=== PATIENT | male | born 2000 | race Two or more races ===

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

== ENCOUNTER 2018-04-17 09:51 | Emergency (ER) | payer MEDICAID ==
[2018-04-17 10:19] LABS: ABSOLUTE EOSINOPHILS # (AUTO) 0.2 10^3/uL (0.0-0.6); ABSOLUTE LYMPHOCYTES (AUTO) 2.2 10^3/uL (0.5-4.7); ABSOLUTE MONOCYTES (AUTO) 0.6 10^3/uL (0.1-1.4); ABSOLUTE NEUT (AUTO) 5.5 10^3/uL (1.7-8.2); BASOPHILS % (AUTO) 0.6 % (0-2); EOSINOPHILS % (AUTO) 2.2 % (0-6); HEMATOCRIT 53.9 % (37.9-51.0); HEMOGLOBIN 18.3 g/dL (13.5-17.0); LYMPHOCYTES % (AUTO) 25.7 % (13-45); MEAN CORPUSCULAR HEMOGLOBIN 29.7 pg (27.0-33.4); MEAN CORPUSCULAR HGB CONC 33.9 g/dL (32.0-36.0); MEAN CORPUSCULAR VOLUME 87 fl (80-97); MONOCYTES % (AUTO) 7.6 % (3-13); PLATELET COUNT 284 10^3/uL (150-450); RED BLOOD COUNT 6.17 10^6/uL (4.35-5.55); RED CELL DISTRIBUTION WIDTH 12.5 % (11.5-14.0); SEGMENTED NEUTROPHILS % (AUTO) 63.9 % (42-78); TOTAL CELLS COUNTED % (AUTO) 100 %; WHITE BLOOD COUNT 8.6 10^3/uL (4.0-10.5)
[2018-04-17] MEDS ORDERED: NORMAL SALINE 1000 ML 1,000 ML IV ONE ×2 (10:41→14:32)
[2018-04-17] MEDS ORDERED: ONDANSETRON HCL INJ/PF 4 MG/2 ML SDV IV ONE (10:41)
[2018-04-17 10:42] LABS: ALANINE AMINOTRANSFERASE 20 U/L (10-40); ALBUMIN 5.7 g/dL (3.7-5.6); ALKALINE PHOSPHATASE 87 U/L (65-260); ASPARTATE AMINO TRANSFERASE 21 U/L (10-45); BILIRUBIN,DIRECT 0.4 mg/dL (0.0-0.4); BILIRUBIN,TOTAL 1.1 mg/dL (0.2-1.3); BLOOD UREA NITROGEN 20 mg/dL (7-20); CALCIUM 11.3 mg/dL (8.4-10.2); GLUCOSE 93 mg/dL (75-110); POTASSIUM 3.6 mmol/L (3.6-5.0); TOTAL PROTEIN 9.3 g/dL (6.3-8.2)
[2018-04-17 10:44] LABS: ACETAMINOPHEN < 10 ug/mL (10-30); ALCOHOL < 10 mg/dL (NONE DETECTED); SALICYLATE < 1.0 mg/dL (2.0-20.0)
[2018-04-17 10:44] LABS: APPEARANCE,URINE CLEAR; BILIRUBIN,URINE NEGATIVE (NEGATIVE); COLOR,URINE YELLOW; GLUCOSE, URINE NEGATIVE (NEGATIVE); KETONES,URINE NEGATIVE (NEGATIVE); LEUKOCYTE ESTERASE,URINE NEGATIVE (NEGATIVE); NITRITE,URINE NEGATIVE (NEGATIVE); PROTEIN,URINE NEGATIVE (NEGATIVE); URINE SPECIFIC GRAVITY 1.015
--- NOTE | 2018-04-17 10:44 | ER Document Report ---
ED General - General Chief Complaint: Drug Abuse Stated Complaint: CHEST PAIN Time Seen by Provider: 04/17/18 10:40 Mode of Arrival: Medic Information source: Patient, Emergency Med Personnel Notes: 17-year-old male with admitted polysubstance abuse presents via EMS after the patient vomited and believed to see blood streaks in his emesis. Patient states that he has been using methamphetamines for the last 4 days straight. He states that he has snorted over a gram. He states that yesterday he had multiple episodes where he was unable to walk. He admits to previous Percocet abuse. He admits to marijuana and alcohol use as well. Patient currently complaining of nausea and left knee pain.. He states he has not eaten in over 4 days. He denies headache, chest pain, shortness of breath, abdominal pain. TRAVEL OUTSIDE OF THE [place] IN LAST 30 DAYS: No - HPI Onset: Other Quality of pain: Achy - Left knee pain Severity: Mild Pain Level: 1 Exacerbated by: Movement Relieved by: Remaining still Similar symptoms previously: Yes Recently seen / treated by doctor: No - Related Data Allergies/Adverse Reactions: fluoxetine [From Prozac] Allergy (Verified 04/17/18 10:06) tramadol [From Ultram] Allergy (Verified 04/17/18 10:06) Past Medical History - General Information source: Patient, [facility] Records - Social History Smoking Status: Current Every Day Smoker Frequency of alcohol use: Occasional Drug Abuse: Marijuana, Methamphetamine Lives with: Friend Family History: Reviewed & Not Pertinent Patient has suicidal ideation: No Patient has homicidal ideation: No Pulmonary Medical History: Reports: Hx Asthma Renal/ Medical History: Denies: Hx Peritoneal Dialysis - Immunizations Immunizations up to date: Yes Hx Diphtheria, Pertussis, Tetanus Vaccination: Yes Review of Systems - Review of Systems Constitutional: Weakness EENT: denies: Double vision Cardiovascular: Lightheaded. denies: Chest pain, Palpitations Respiratory: denies: Hurts to breathe, Short of breath Gastrointestinal: Nausea, Vomiting Genitourinary: denies: Dysuria Male Genitourinary: No symptoms reported Musculoskeletal: Joint swelling, Other - Left knee pain Skin: No symptoms reported Hematologic/Lymphatic: No symptoms reported Neurological/Psychological: Weakness, Lost consciousness. denies: Hallucinations, Suicidal ideation Physical Exam - Vital signs Vitals: Resp BP Pulse Ox 15 119/74 99 04/17/18 10:02 04/17/18 10:02 04/17/18 10:02 Interpretation: Normal, Tachycardic. No: Hypoxic - Notes Notes: PHYSICAL EXAMINATION: GENERAL: Well-appearing, well-nourished and in no acute distress. HEAD: Atraumatic, normocephalic. EYES: Pupils equal round and reactive to light, extraocular movements intact, sclera anicteric, conjunctiva are normal. ENT: Nares patent, oropharynx clear without exudates. Moist mucous membranes. NECK: Normal range of motion, supple without lymphadenopathy LUNGS: Breath sounds clear to auscultation bilaterally and equal. No wheezes rales or rhonchi. HEART: Regular rate and rhythm without murmurs ABDOMEN: Soft, nontender, nondistended abdomen. No guarding, no rebound. No masses appreciated. Musculoskeletal: Left knee -no obvious deformity, pain with range of motion, Medial effusion, extensor mechanism intact NEUROLOGICAL: Cranial nerves grossly intact. Normal speech, normal gait. Normal sensory, motor exams PSYCH: Normal mood, normal affect. Denies SI/HI, auditory and visual hallucinations. Is requesting psych eval SKIN: Warm, Dry, normal turgor, no rashes or lesions noted. Course - Re-evaluation Re-evalutation: Laboratory 04/17/18 04/17/18 04/17/18 09:00 09:00 10:19 WBC 8.6 RBC 6.17 H Hgb 18.3 H Hct 53.9 H MCV 87 MCH 29.7 MCHC 33.9 RDW 12.5 Plt Count 284 Seg Neutrophils % 63.9 Lymphocytes % 25.7 Monocytes % 7.6 Eosinophils % 2.2 Basophils % 0.6 Absolute Neutrophils 5.5 Absolute Lymphocytes 2.2 Absolute Monocytes 0.6 Absolute Eosinophils 0.2 Absolute Basophils 0.0 Sodium 143.8 Potassium 3.6 Chloride 99 Carbon Dioxide 25 Anion Gap 20 H BUN 20 Creatinine 0.97 Est GFR ( Amer) > 60 Est GFR (Non-Af Amer) > 60 Glucose 93 Calcium 11.3 H Total Bilirubin 1.1 Direct Bilirubin 0.4 Neonat Total Bilirubin Not Reportable Neonat Direct Bilirubin Not Reportable Neonat Indirect Bili Not Reportable AST 21 ALT 20 Alkaline Phosphatase 87 Total Protein 9.3 H Albumin 5.7 H Urine Color YELLOW Urine Appearance CLEAR Urine pH 7.0 Ur Specific [place] 1.015 Urine Protein NEGATIVE Urine Glucose (UA) NEGATIVE Urine Ketones NEGATIVE Urine Blood NEGATIVE Urine Nitrite NEGATIVE Urine Bilirubin NEGATIVE Urine Urobilinogen 4.0 H Ur Leukocyte Esterase NEGATIVE Urine WBC (Auto) 0 Urine RBC (Auto) 0 Urine Mucus (Auto) RARE Urine Ascorbic Acid NEGATIVE Salicylates < 1.0 L Urine Opiates Screen Urine Methadone Screen Acetaminophen < 10 L Ur Barbiturates Screen Ur Phencyclidine Scrn Ur Amphetamines Screen U Benzodiazepines Scrn Urine Cocaine Screen U Marijuana (THC) Screen Serum Alcohol < 10 04/17/18 10:19 WBC RBC Hgb Hct MCV MCH MCHC RDW Plt Count Seg Neutrophils % Lymphocytes % Monocytes % Eosinophils % Basophils % Absolute Neutrophils Absolute Lymphocytes Absolute Monocytes Absolute Eosinophils Absolute Basophils Sodium Potassium Chloride Carbon Dioxide Anion Gap BUN Creatinine Est GFR ( Amer) Est GFR (Non-Af Amer) Glucose Calcium Total Bilirubin Direct Bilirubin Neonat Total Bilirubin Neonat Direct Bilirubin Neonat Indirect Bili AST ALT Alkaline Phosphatase Total Protein Albumin Urine Color Urine Appearance Urine pH Ur Specific [place] Urine Protein Urine Glucose (UA) Urine Ketones Urine Blood Urine Nitrite Urine Bilirubin Urine Urobilinogen Ur Leukocyte Esterase Urine WBC (Auto) Urine RBC (Auto) Urine Mucus (Auto) Urine Ascorbic Acid Salicylates Urine Opiates Screen NEGATIVE Urine Methadone Screen NEGATIVE Acetaminophen Ur Barbiturates Screen NEGATIVE Ur Phencyclidine Scrn NEGATIVE Ur Amphetamines Screen U Benzodiazepines Scrn NEGATIVE Urine Cocaine Screen NEGATIVE U Marijuana (THC) Screen UNCONFIRMED POSITIVE Serum Alcohol 04/17/18 15:20 17-year-old male with admitted polysubstance abuse presents via EMS after the patient vomited and believed to see blood streaks in his emesis. Patient states that he has been using methamphetamines for the last 4 days straight. He states that he has snorted over a gram. He states that yesterday he had multiple episodes where he was unable to walk. He admits to previous Percocet abuse. He admits to marijuana and alcohol use as well. Patient currently complaining of nausea and left knee pain.. He states he has not eaten in over 4 days. Vitals reviewed upon arrival and wnl. Patient AOx4 and in no distress. States he's concerned he may have used to much meth. Patient received IV fluids , antiemetics and tylenol during his ED course. He had no vomiting after over three hours of observation. Patient remained stable throughout his ED course. He was evaluated by psychiatry and is declining detox. Patient is psychiatrically cleared, medically cleared. Patient will be discharged to a responsible adult(father called) Drug cessation advised multiple times.Patient states he can stop using "if he wants" Patient discharged home in stable condition. 04/17/18 21:58 - Vital Signs Vital signs: Temp Pulse Resp BP Pulse Ox 98.2 F 90 18 127/87 H 97 04/17/18 16:05 04/17/18 16:05 04/17/18 16:05 04/17/18 16:05 04/17/18 16:05 - Laboratory Result Diagrams: 04/17/18 09:00 04/17/18 09:00 Laboratory results interpreted by me: 04/17/18 04/17/18 04/17/18 09:00 09:00 10:19 RBC 6.17 H Hgb 18.3 H Hct 53.9 H Anion Gap 20 H Calcium 11.3 H Total Protein 9.3 H Albumin 5.7 H Urine Urobilinogen 4.0 H Salicylates < 1.0 L Acetaminophen < 10 L - Diagnostic Test Radiology reviewed: Image reviewed, Reports reviewed - EKG Interpretation by Me EKG shows normal: Sinus rhythm Rate: Normal Rhythm: NSR Discharge - Discharge Clinical Impression: Substance abuse, Amphetamine abuse Contusion of left knee Qualifiers: Encounter type: initial encounter Qualified Code(s): S80.02XA - Contusion of left knee, initial encounter Condition: Good Disposition: HOME, SELF-CARE Instructions: Ampetamine Abuse ([facility]), Contusion ([facility]) Additional Instructions: Follow up with your physician tomorrow for further care or return to the ED IMMEDIATELY if symptoms worsen or new concerns occur. If you cannot afford to follow up with your primary care physician a list of low cost clinics have been provided at the end of your discharge papers as well. Forms: Smoking Cessation Education
[2018-04-17 10:47] LABS: CARBON DIOXIDE 25 mmol/L (22-30); CHLORIDE 99 mmol/L (98-107); SODIUM 143.8 mmol/L (137-145)
[2018-04-17 10:48] LABS: ANION GAP 20 (5-19)
[2018-04-17 11:03] LABS: URINE BARBITURATES SCREEN NEGATIVE; URINE BENZODIAZEPINES SCREEN NEGATIVE; URINE COCAINE SCREEN NEGATIVE; URINE MARIJUANA (THC) SCREEN UNCONFIRMED POSITIVE; URINE METHADONE SCREEN NEGATIVE; URINE PHENCYCLIDINE SCREEN NEGATIVE
--- NOTE | 2018-04-17 11:47 | RADIOLOGY REPORT (SQ) ---
EXAM DESCRIPTION: KNEE RIGHT 3 VIEWS COMPLETED DATE/TIME: 04/17/2018 11:25 am REASON FOR STUDY: fall fall yesterday, injury pain. No open wound. COMPARISON: None. NUMBER OF VIEWS: Three views. TECHNIQUE: AP, lateral, and sunrise patella radiographic images acquired of the right knee. LIMITATIONS: None. FINDINGS: MINERALIZATION: Normal. BONES: No acute fracture or dislocation. No worrisome bone lesions. JOINT: No effusion. SOFT TISSUES: No soft tissue swelling. No radio-opaque foreign body. OTHER: No other significant finding. IMPRESSION: NEGATIVE STUDY OF THE RIGHT KNEE. NO RADIOGRAPHIC EVIDENCE OF ACUTE INJURY. TECHNICAL DOCUMENTATION: JOB ID: [id number] [employer]- All Rights Reserved Reading location - IP/workstation name: [email or web address]
[2018-04-17] MEDS ORDERED: METOCLOPRAMIDE HCL INJ/PF 10 MG/2 ML SDV IV ONE (12:42)
[2018-04-17] MEDS ORDERED: ACETAMINOPHEN 325 MG TABLET PO ONE (12:42)
--- NOTE | 2018-04-17 13:01 | EKG REPORT ---
SEVERITY:- ABNORMAL ECG - SINUS RHYTHM BORDERLINE RIGHT AXIS DEVIATION ST ELEVATION NONDIAGNOSTIC : Confirmed by: Benji Juen MD 17-Apr-2018 13:00:45
[2018-04-17 16:05] VITALS: BP 127/87
--- NOTE | 2018-04-18 00:12 | PSYCHOLOGICAL NOTE ---
Psych Note - Psych Note Psych Note: Reason for consult: Methamphetamine abuse Contact Permissions: None Patient is a 17 year old male. Patient reports he called EMS because he was googling meth overdose and stated he was worried about his physical body like his heart , knee, and lungs. Patient reports he has been using meth for 4 months now. Patient reports he can stop when he wants to, and is not addicted. Patient reports he started using because of a friend that introduced him to it. Patient reports he usually snorts ( not smokes) 0.1 mg three times a day, but used 0.2 mg 5 times yesterday and became concerned today because he heart felt weird. Patient reports he has friends and family that are good support systems. Patient reports he does not want detox. Patient reports he is not suicidal and has not had any thoughts of wanting to harm himself. Patient reports he has a friend coming to visit him calling him a "guest". Patient reports he has never had therapy, inpatient psychiatric hospitalizations, or received a mental health diagnosis before. Patient reports he lives with family and mainly hangs out with friends. Patient nurse stated patient's father is going to pick patient up once he is medically cleared. 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 Patient denied SI/HI.Patient was provided substance abuse resources. Clinician observed patient does not see his use as negative, and is primarily concerned about his physical health. Recommendation for patient to follow up with [facility] mobile crisis management team. Patient denied wanting substance use treatment. Clinician provided education regarding substance use disorder, and negative health impact methamphetamine has, and the benefits of utilizing resources such as [facility] for substance use disorder. Patient's nurse was notified to ensure patient was discharged to a person who was able to transport patient home, patient's nurse stated patient's father was on the way to pick patient up. Attending physician in agreement with plan and disposition. Consulted with Dr. Rivas regarding management and care of patient.
== END 2018-04-17 16:08 | disposition home or self-care (01) ==
LOC: ER 09:51
DX: F15.10 Other stimulant abuse, uncomplicated (principal); F12.10 Cannabis abuse, uncomplicated; R11.2 Nausea with vomiting, unspecified; S80.02XA Contusion of left knee, initial encounter; X58.XXXA Exposure to other specified factors, initial encounter; R55 Syncope and collapse; R53.1 Weakness; F17.200 Nicotine dependence, unspecified, uncomplicated; J45.909 Unspecified asthma, uncomplicated; Z88.8 Allergy status to other drugs, medicaments and biological substances; Z88.5 Allergy status to narcotic agent
CPT/HCPCS: 93005; 99285; 96361; 96374; 36415; 80307 ×4; 85025; 80053; 81001; 73562; 93010; J3490; J2765; J7030

== ENCOUNTER 2018-06-28 14:24 | Emergency (ER) | payer SELFPAY ==
[2018-06-28 14:30] VITALS: BP 115/66
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
[2018-06-28 18:46] LABS: ABSOLUTE EOSINOPHILS # (AUTO) 0.1 10^3/uL (0.0-0.6); ABSOLUTE LYMPHOCYTES (AUTO) 2.6 10^3/uL (0.5-4.7); ABSOLUTE MONOCYTES (AUTO) 0.8 10^3/uL (0.1-1.4); ABSOLUTE NEUT (AUTO) 6.3 10^3/uL (1.7-8.2); BASOPHILS % (AUTO) 0.5 % (0-2); EOSINOPHILS % (AUTO) 1.3 % (0-6); HEMATOCRIT 42.3 % (37.9-51.0); HEMOGLOBIN 14.4 g/dL (13.5-17.0); LYMPHOCYTES % (AUTO) 26.4 % (13-45); MEAN CORPUSCULAR HEMOGLOBIN 30.2 pg (27.0-33.4); MEAN CORPUSCULAR HGB CONC 34.1 g/dL (32.0-36.0); MEAN CORPUSCULAR VOLUME 88 fl (80-97); MONOCYTES % (AUTO) 8.5 % (3-13); PLATELET COUNT 206 10^3/uL (150-450); RED BLOOD COUNT 4.79 10^6/uL (4.35-5.55); RED CELL DISTRIBUTION WIDTH 12.9 % (11.5-14.0); SEGMENTED NEUTROPHILS % (AUTO) 63.3 % (42-78); TOTAL CELLS COUNTED % (AUTO) 100 %; WHITE BLOOD COUNT 9.9 10^3/uL (4.0-10.5)
[2018-06-28] MEDS ORDERED: TETRACAINE HCL 0.5% OPH SOLN 2 ML OS ONE (18:59)
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
[2018-06-28 19:05] LABS: ALANINE AMINOTRANSFERASE 23 U/L (10-40); ALBUMIN 4.3 g/dL (3.7-5.6); ALKALINE PHOSPHATASE 60 U/L (65-260); ANION GAP 16 (5-19); ASPARTATE AMINO TRANSFERASE 20 U/L (10-45); BILIRUBIN,DIRECT 0.2 mg/dL (0.0-0.4); BILIRUBIN,TOTAL 0.7 mg/dL (0.2-1.3); BLOOD UREA NITROGEN 7 mg/dL (7-20); CALCIUM 9.6 mg/dL (8.4-10.2); CARBON DIOXIDE 24 mmol/L (22-30); CHLORIDE 105 mmol/L (98-107); GLUCOSE 137 mg/dL (75-110); POTASSIUM 3.3 mmol/L (3.6-5.0); SODIUM 144.5 mmol/L (137-145)
[2018-06-28 19:06] LABS: ALCOHOL < 10 mg/dL (NONE DETECTED)
[2018-06-28] MEDS: ERYTHROMYCIN 0.5% OPH OINT 1 GM UNIT DOSE OS ONE (19:22)
[2018-06-28] MEDS: IBUPROFEN 800 MG TABLET PO ONE (19:23)
== END 2018-06-28 19:31 | disposition home or self-care (01) ==
LOC: ER 14:24
DX: S05.12XA Contusion of eyeball and orbital tissues, left eye, initial encounter (principal); S50.02XA Contusion of left elbow, initial encounter; S80.02XA Contusion of left knee, initial encounter; S20.412A Abrasion of left back wall of thorax, initial encounter; S20.411A Abrasion of right back wall of thorax, initial encounter; M25.559 Pain in unspecified hip; H57.12 Ocular pain, left eye; M54.2 Cervicalgia; Y04.2XXA Assault by strike against or bumped into by another person, initial encounter; H53.8 Other visual disturbances; G91.9 Hydrocephalus, unspecified; G93.89 Other specified disorders of brain; F17.210 Nicotine dependence, cigarettes, uncomplicated; F12.10 Cannabis abuse, uncomplicated; J45.909 Unspecified asthma, uncomplicated; Z88.8 Allergy status to other drugs, medicaments and biological substances; Z88.5 Allergy status to narcotic agent
CPT/HCPCS: 99284; 36415; 80307; 85025; 80053; 73080; 73564; 73522; 73010; 70450; 70486; 72125; L1830; L0120

== ENCOUNTER 2018-12-15 08:47 | Emergency (ER) | payer SELFPAY ==
[2018-12-15] MEDS ORDERED: NORMAL SALINE 1000 ML 1,000 ML IV ONE (08:55)
--- NOTE | 2018-12-15 09:02 | ER Document Report ---
Addendum entered and electronically signed by JANIYA AUSTIN MD 12/16/18 10:47: Discharge - Discharge Clinical Impression: Suicide attempt Drug overdose Qualifiers: Encounter type: initial encounter Injury intent: intentional self-harm Qualified Code(s): T50.902A - Poisoning by unspecified drugs, medicaments and biological substances, intentional self-harm, initial encounter Condition: Stable Disposition: HOME, SELF-CARE Additional Instructions: You have been evaluated both medical and behavioral health teams and been deemed appropriate for discharge. You have provided local resource list of area providers including contact information for mobile crisis. You are recommended to follow-up with [facility] mobile crisis upon discharge for continued assistance of mental health and substance use treatment. You have also been provided medication. Prozac 10mg daily and Zyprexa 2.5mg twice daily; please take as directed. 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 While symptoms may be vague, they often include disturbance of sleep, fatigue, loss of appetite, and general loss of interest in life. While depression may be a side effect of drugs, or a reaction to a major change in your life, many cases have no known cause. If depression is acute, and related to a major loss in your life, you can expect it to clear completely with time. If you have been depressed a long time, are prone to repeated bouts of depression or low mood, or have been thinking of suicide, get help. Depression can be treated with anti-depressant medication and counselling. Long-term depression will often take a few weeks to clear, even with appropriate medication. Follow-up care is important. SUICIDAL IDEATION: Suicidal ideation is a common medical term for thoughts about suicide, which may be as detailed as a formulated plan, without the suicidal act itself. Although most people who undergo suicidal ideation do not commit suicide, some go on to make suicide attempts. The range of suicidal ideation varies greatly from fleeting to detailed planning, role playing, and unsuccessful attempts. While thoughts about suicide are common, most people do not carry out serious actions to commit suicide. Based upon your evaluation and discussion with you, we do not believe you are currently at risk to act upon your thoughts of suicide. You have agreed to return to the Emergency Department, at any time, if you feel inclined to act upon your suicidal thoughts. FOLLOW-UP CARE: If you experience worsening or a significant change in your symptoms, notify the physician immediately or return to the Emergency Department at any time for re- evaluation. Prescriptions: Fluoxetine HCl [Prozac] 10 mg PO DAILY 14 Days #14 capsule Olanzapine [Zyprexa 2.5 Mg Tablet] 2.5 mg PO BID #28 tablet Referrals: [facility] [Outside] - Follow up in 3-5 days [facility] [Outside] - 12/16/18 GAMAL POWELL MD [Primary Care Provider] - Follow up as needed Addendum entered and electronically signed by MIGUEL MENDES LCSWA 12/16/18 08:31: Discharge - Discharge Clinical Impression: Suicide attempt Drug overdose Qualifiers: Encounter type: initial encounter Injury intent: intentional self-harm Qualified Code(s): T50.902A - Poisoning by unspecified drugs, medicaments and biological substances, intentional self-harm, initial encounter Condition: Stable Disposition: HOME, SELF-CARE Additional Instructions: You have been evaluated both medical and behavioral health teams and been deemed appropriate for discharge. You have provided local resource list of area providers including contact information for mobile crisis. You are recommended to follow-up with [facility] upon discharge for continued assistance of mental health and substance use treatment. You have also been provided medication. Prozac 10mg daily and Zyprexa 2.5mg twice daily; please take as directed. 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 While symptoms may be vague, they often include disturbance of sleep, fatigue, loss of appetite, and general loss of interest in life. While depression may be a side effect of drugs, or a reaction to a major change in your life, many cases have no known cause. If depression is acute, and related to a major loss in your life, you can expect it to clear completely with time. If you have been depressed a long time, are prone to repeated bouts of depression or low mood, or have been thinking of suicide, get help. Depression can be treated with anti-depressant medication and counselling. Long-term depression will often take a few weeks to clear, even with appropriate medication. Follow-up care is important. SUICIDAL IDEATION: Suicidal ideation is a common medical term for thoughts about suicide, which may be as detailed as a formulated plan, without the suicidal act itself. Although most people who undergo suicidal ideation do not commit suicide, some go on to make suicide attempts. The range of suicidal ideation varies greatly from fleeting to detailed planning, role playing, and unsuccessful attempts. While thoughts about suicide are common, most people do not carry out serious actions to commit suicide. Based upon your evaluation and discussion with you, we do not believe you are currently at risk to act upon your thoughts of suicide. You have agreed to return to the Emergency Department, at any time, if you feel inclined to act upon your suicidal thoughts. FOLLOW-UP CARE: If you experience worsening or a significant change in your symptoms, notify the physician immediately or return to the Emergency Department at any time for re- evaluation. Referrals: GAMAL POWELL MD [Primary Care Provider] - Follow up as needed [facility] [Outside] - 12/16/18 [facility] [Outside] - Follow up in 3-5 days Original Note: ED General - General Stated Complaint: POSSIBLE OVERDOSE Time Seen by Provider: 12/15/18 08:55 TRAVEL OUTSIDE OF THE [place] IN LAST 30 DAYS: No - HPI Notes: Patient is a 18 year old male that presents to the emergency department for [facility] complaint of drug overdose. Patient reportedly took 45 300 mg tablets of gabapentin at 730 this morning and a an attempt to kill himself. He states he has had suicidal thoughts and gestures in the past. He currently does still feel like he wants to . He reports pain all over his body. He denies any headache, vision changes, chest pain, shortness of breath, nausea and abdominal pain. Patient also states he has a history of heroin abuse but has not had any heroin in 4 days. He states he was drinking alcohol yesterday and drinks alcohol frequently. He denies daily alcohol consumption. Past Medical History: negative Past Surgical History: negative Social History: heroin abuse, daily tobacco. frequent alcohol Family History: Reviewed and noncontributory for presenting illness Allergies: Reviewed, see documented allergy list. REVIEW OF SYSTEMS: CONSTITUTIONAL : No fever No chills No diaphoresis No recent illness EENT: No vision changes No congestion No sore throat CARDIOVASCULAR: No chest pain No palpitations RESPIRATORY: No shortness of breath No cough No difficulty breathing GASTROINTESTINAL: No abdominal pain No nausea No vomiting No diarrhea GENITOURINARY: No dysuria No hematuria No difficulty urinating MUSCULOSKELETAL: back pain leg pain arm pain SKIN: No rashes No lesions LYMPHATIC: No swollen, enlarged glands. NEUROLOGICAL: No lightheadedness No headache No weakness No paresthesias PSYCHIATRIC: No anxiety No depression PHYSICAL EXAMINATION: Vital signs reviewed, nursing noted reviewed. GENERAL: Somnolent and in no acute distress. HEAD: Atraumatic, normocephalic. EYES: No nystagmus, eyes appear normal, extraocular movements intact, sclera anicteric, conjunctiva are normal. ENT: nares patent, oropharynx clear without exudates. Dry mucous membranes. NECK: Normal range of motion, supple without lymphadenopathy LUNGS: Breath sounds clear to auscultation bilaterally and equal. No wheezes rales or rhonchi. HEART: Tachycardic rate and regular rhythm without murmurs ABDOMEN: Soft, nontender, normoactive bowel sounds. No rebound, guarding, or rigidity. No masses appreciated. EXTREMITIES: Nontender, good range of motion, no pitting or edema. NEUROLOGICAL: No focal neurological deficits. Moves all extremities spontaneously Motor and sensory grossly intact on exam. PSYCH: Flat affect, depressed, suicidal SKIN: Warm, Dry, normal turgor, no rashes or lesions noted on exposed skin - Related Data Allergies/Adverse Reactions: fluoxetine [From Prozac] Allergy (Verified 06/28/18 14:27) tramadol [From Ultram] Allergy (Verified 06/28/18 14:27) Past Medical History - Social History Smoking Status: Current Every Day Smoker Family History: Reviewed & Not Pertinent Pulmonary Medical History: Reports: Hx Asthma Renal/ Medical History: Denies: Hx Peritoneal Dialysis - Immunizations Immunizations up to date: Yes Hx Diphtheria, Pertussis, Tetanus Vaccination: Yes Physical Exam - Vital signs Vitals: Resp Pulse Ox 16 100 12/15/18 09:03 12/15/18 09:03 Course - Re-evaluation Re-evalutation: 12/15/18 09:01 Vitals reviewed. Nursing notes reviewed. Patient placed on cardiac monitoring. Patient ingestion was likely gabapentin however I am unable to confirm this. I did discuss the gabapentin overdose with poison control who recommends at least a 6-hour episode of monitoring for APARTMENT MANAGER and respiratory depression. They advised supportive care. They do not advise charcoal. Patient is currently somnolent but is interactive and answering questions appropriately. He is protecting his airway and oxygenating well on room air. Seizure pads were placed as a precaution. The patient is mildly tachycardic and was started on IV hydration. 12/15/18 09:14 I discussed patient's care with pharmacy who states that some gabapentin tablets are orange if they are in capsule form. When I further interrogated patient with the medication. He was very clear that it was a capsule that was orange all over. This could potentially be gabapentin however there is no way to confi rm this without a sample medication. He is still somnolent but mentating appropriately 12/15/18 15:13 Patient had been in the emergency room for 6 hours. He is now awake and angry that I have not fed him. Patient is mentating appropriately. He has had no dysrhythmia on telemetry. His GCS is 15. Patient is medically cleared for further psychiatric evaluation Laboratory 12/15/18 12/15/18 12/15/18 09:30 09:30 12:25 WBC 6.1 RBC 5.21 Hgb 15.8 Hct 46.2 MCV 89 MCH 30.3 MCHC 34.2 RDW 12.7 Plt Count 232 Seg Neutrophils % 62.6 Lymphocytes % 28.4 Monocytes % 7.3 Eosinophils % 1.2 Basophils % 0.5 Absolute Neutrophils 3.8 Absolute Lymphocytes 1.7 Absolute Monocytes 0.4 Absolute Eosinophils 0.1 Absolute Basophils 0.0 Sodium 140.5 Potassium 4.0 Chloride 107 Carbon Dioxide 27 Anion Gap 7 BUN 11 Creatinine 0.70 Est GFR ( Amer) > 60 Est GFR (Non-Af Amer) > 60 Glucose 85 Calcium 9.5 Total Bilirubin 0.7 Direct Bilirubin 0.2 Neonat Total Bilirubin Not Reportable Neonat Direct Bilirubin Not Reportable Neonat Indirect Bili Not Reportable AST 69 H ALT 46 Alkaline Phosphatase 74 Total Protein 7.3 Albumin 4.7 Urine Color YELLOW Urine Appearance CLEAR Urine pH 7.0 Ur Specific [place] 1.005 Urine Protein NEGATIVE Urine Glucose (UA) NEGATIVE Urine Ketones NEGATIVE Urine Blood NEGATIVE Urine Nitrite NEGATIVE Urine Bilirubin NEGATIVE Urine Urobilinogen 2.0 H Ur Leukocyte Esterase NEGATIVE Urine RBC (Auto) 0 Urine Mucus (Auto) RARE Urine Ascorbic Acid NEGATIVE Salicylates < 1.0 L Urine Opiates Screen Urine Methadone Screen Acetaminophen < 10 L Ur Barbiturates Screen Ur Phencyclidine Scrn Ur Amphetamines Screen U Benzodiazepines Scrn Urine Cocaine Screen U Marijuana (THC) Screen Serum Alcohol < 10 12/15/18 12:25 WBC RBC Hgb Hct MCV MCH MCHC RDW Plt Count Seg Neutrophils % Lymphocytes % Monocytes % Eosinophils % Basophils % Absolute Neutrophils Absolute Lymphocytes Absolute Monocytes Absolute Eosinophils Absolute Basophils Sodium Potassium Chloride Carbon Dioxide Anion Gap BUN Creatinine Est GFR ( Amer) Est GFR (Non-Af Amer) Glucose Calcium Total Bilirubin Direct Bilirubin Neonat Total Bilirubin Neonat Direct Bilirubin Neonat Indirect Bili AST ALT Alkaline Phosphatase Total Protein Albumin Urine Color Urine Appearance Urine pH Ur Specific [place] Urine Protein Urine Glucose (UA) Urine Ketones Urine Blood Urine Nitrite Urine Bilirubin Urine Urobilinogen Ur Leukocyte Esterase Urine RBC (Auto) Urine Mucus (Auto) Urine Ascorbic Acid Salicylates Urine Opiates Screen NEGATIVE Urine Methadone Screen NEGATIVE Acetaminophen Ur Barbiturates Screen NEGATIVE Ur Phencyclidine Scrn NEGATIVE Ur Amphetamines Screen NEGATIVE U Benzodiazepines Scrn NEGATIVE Urine Cocaine Screen NEGATIVE U Marijuana (THC) Screen UNCONFIRMED POSITIVE Serum Alcohol - Vital Signs Vital signs: Temp Pulse Resp BP Pulse Ox 98 F 13 96/62 L 99 12/15/18 09:06 12/15/18 12:01 12/15/18 12:01 12/15/18 12:01 - Laboratory Result Diagrams: 12/15/18 09:30 12/15/18 09:30 Laboratory results interpreted by me: 12/15/18 12/15/18 09:30 12:25 AST 69 H Urine Urobilinogen 2.0 H Salicylates < 1.0 L Acetaminophen < 10 L - EKG Interpretation by Me Additional EKG results interpreted by me: 12/15/18 11:18 Interpreted by myself [id number]: Normal sinus rhythm, rate 88, normal axis, no ectopy, QT 340, QTc 412, no STEMI Discharge - Discharge Clinical Impression: Suicide attempt Drug overdose Qualifiers: Encounter type: initial encounter Injury intent: intentional self-harm Qualified Code(s): T50.902A - Poisoning by unspecified drugs, medicaments and biological substances, intentional self-harm, initial encounter Condition: Stable
[2018-12-15 09:44] LABS: ABSOLUTE EOSINOPHILS # (AUTO) 0.1 10^3/uL (0.0-0.6); ABSOLUTE LYMPHOCYTES (AUTO) 1.7 10^3/uL (0.5-4.7); ABSOLUTE MONOCYTES (AUTO) 0.4 10^3/uL (0.1-1.4); ABSOLUTE NEUT (AUTO) 3.8 10^3/uL (1.7-8.2); BASOPHILS % (AUTO) 0.5 % (0-2); EOSINOPHILS % (AUTO) 1.2 % (0-6); HEMATOCRIT 46.2 % (37.9-51.0); HEMOGLOBIN 15.8 g/dL (13.5-17.0); LYMPHOCYTES % (AUTO) 28.4 % (13-45); MEAN CORPUSCULAR HEMOGLOBIN 30.3 pg (27.0-33.4); MEAN CORPUSCULAR HGB CONC 34.2 g/dL (32.0-36.0); MEAN CORPUSCULAR VOLUME 89 fl (80-97); MONOCYTES % (AUTO) 7.3 % (3-13); PLATELET COUNT 232 10^3/uL (150-450); RED BLOOD COUNT 5.21 10^6/uL (4.35-5.55); RED CELL DISTRIBUTION WIDTH 12.7 % (11.5-14.0); SEGMENTED NEUTROPHILS % (AUTO) 62.6 % (42-78); TOTAL CELLS COUNTED % (AUTO) 100 %; WHITE BLOOD COUNT 6.1 10^3/uL (4.0-10.5)
[2018-12-15 10:00] LABS: ALANINE AMINOTRANSFERASE 46 U/L (21-72); ALBUMIN 4.7 g/dL (3.5-5.0); ALKALINE PHOSPHATASE 74 U/L (38-126); ANION GAP 7 (5-19); ASPARTATE AMINO TRANSFERASE 69 U/L (17-59); BILIRUBIN,DIRECT 0.2 mg/dL (0.0-0.4); BILIRUBIN,TOTAL 0.7 mg/dL (0.2-1.3); BLOOD UREA NITROGEN 11 mg/dL (7-20); CALCIUM 9.5 mg/dL (8.4-10.2); CARBON DIOXIDE 27 mmol/L (22-30); CHLORIDE 107 mmol/L (98-107); GLUCOSE 85 mg/dL (75-110); SODIUM 140.5 mmol/L (137-145); TOTAL PROTEIN 7.3 g/dL (6.3-8.2)
[2018-12-15 10:03] LABS: ACETAMINOPHEN < 10 ug/mL (10-30); ALCOHOL < 10 mg/dL (NONE DETECTED); SALICYLATE < 1.0 mg/dL (2.0-20.0)
[2018-12-15 12:54] LABS: APPEARANCE,URINE CLEAR; BILIRUBIN,URINE NEGATIVE (NEGATIVE); COLOR,URINE YELLOW; GLUCOSE, URINE NEGATIVE (NEGATIVE); KETONES,URINE NEGATIVE (NEGATIVE); LEUKOCYTE ESTERASE,URINE NEGATIVE (NEGATIVE); NITRITE,URINE NEGATIVE (NEGATIVE); PROTEIN,URINE NEGATIVE (NEGATIVE); URINE SPECIFIC GRAVITY 1.005
[2018-12-15 13:12] LABS: URINE AMPHETAMINES SCREEN NEGATIVE; URINE BARBITURATES SCREEN NEGATIVE; URINE BENZODIAZEPINES SCREEN NEGATIVE; URINE COCAINE SCREEN NEGATIVE; URINE MARIJUANA (THC) SCREEN UNCONFIRMED POSITIVE; URINE METHADONE SCREEN NEGATIVE; URINE PHENCYCLIDINE SCREEN NEGATIVE
[2018-12-15] MEDS ORDERED: OLANZAPINE 2.5 MG TABLET PO SCH (18:30)
[2018-12-15] MEDS ORDERED: FLUOXETINE HCL 20 MG CAPSULE PO SCH (18:30)
--- NOTE | 2018-12-15 20:54 | EKG REPORT ---
SEVERITY:- NORMAL ECG - SINUS RHYTHM : Confirmed by: Wendy Nassar 15-Dec-2018 20:53:55
[2018-12-15] MEDS ORDERED: FLUOXETINE HCL 20 MG/5 ML UDCUP ONE (23:32)
[2018-12-16 05:47] VITALS: BP 110/73
--- NOTE | 2018-12-16 08:24 | PSYCHOLOGICAL NOTE ---
Psych Note - Psych Note Date seen by psych provider: 12/16/18 Time seen by psych provider: 06:55 Psych Note: Reason for Consult: intentional overdose Consent permissions: FatherCristiano, [phone] Patient is a 18 year old male that presents to the emergency department for chief complaint of drug overdose. Patient reportedly took 45 300 mg tablets of gabapentin at 730 this morning and a an attempt to kill himself. Check in conducted with patient Patient disclosed that he arrived to [facility] because of a suicide attempt. He states he took a "bunch of pills" because he was on "overload." He states that he has been trying to get help cover any place that he has attempted to contact in [place] either does not take his insurance or he has no transportation to get there. Patient was asked why he was contacting [facility] as he reported he currently lives in [place]. He had no answer for this. When asked what insurance he has he states that he has Medicaid, family planning, and states that most places will not accepted. Patient denies thoughts of wanting to harm himself and states that he did not want to kill himself yesterday that "it was just a cry for help." When asked what assistance he would like he reports that he needs help for his depression and substance abuse. He reports that he snorts and shoots heroin however states that he has not shot up in over 2 months and the last time he snorted was approximately 5-7 days ago. He denies any other drug use within the last week. Patient reports that he just "wants to get help." Clinician contacted patient's father who reports he is currently at patient bedside. Clinician joined patient and patient father. Patient's father discloses that he feels the patient needs therapy. He reports he has no concerns about the patient returning home and agrees to be part of patient care i.e. no access to medications and weapons and follows through with mental health recommendations. He reports he has a safe will keep medications locked in a safe and will administer as directed. He discloses the patient does have anger issues and is glad that he was able to be started on some medications to assist. Medication recommendations per [facility]'s contracted psychiatrist Dr Abby THOMAS are as follows Prozac 10mg daily Zyprexa 2.5mg twice daily 311 (F32.9) unspecified depressive disorder 292.9 (F11.99) Unspecified Opioid disorder per history provided by patient R/O Substance induced depressive disorder Impression/Plan: Patient is recommended for rescind of IVC and is cleared from acute psychiatric services. Patient denies current thoughts of wanting to harm himself. He engages effectively with clinician easily identifying the need of therapy to assist with mood regulation and continued struggle to maintain sobriety. Medication recommendations were started yesterday. Patient's father agrees to be part of patient's plan of care i.e. no access to medications and weapons and to follow through with the health recommendations. Patient's father reports he has no concerns with the patient returning home to his care. Patient is recommended to follow-up with outpatient mental health and substance abuse treatment services with [facility]. Patient was provided a local resource list of area providers including mobile crisis contact information. Patient is recommended to contact [facility] mobile crisis upon discharge for continued immediate assistance. Dr. Rivas was consulted and the care management this patient; attending physicians in agreement with recommendations and disposition.
--- NOTE | 2018-12-16 09:28 | ER Document Report ---
Doctor's Note Notes: 12/16/18 09:28 18-year-old male with gabapentin overdose secondary to suicidal ideations. Labs and vital signs as recorded. Positive marijuana. The psychiatry/psychology team is evaluating the patient. 12/16/18 10:44 Psychology/psychiatry team is seen and evaluated the patient. They do not believe that the patient meets IVC criteria at this time. Patient states that it was "a cry for help. Father was in the room and is very comfortable with the patient going home. The psychiatry team has started the patient on new medications and has provided follow-up with integrated [facility] services. Patient denies any suicidal ideations at this time. Vital signs are stable. We are starting the patient on Prozac and Zyprexa.
[2018-12-16] MEDS ORDERED: FLUOXETINE HCL 20 MG/5 ML UDCUP PO SCH ×2 (11:30→21:36)
== END 2018-12-16 11:21 | disposition home or self-care (01) ==
LOC: ER 08:47
DX: T50.902A Poisoning by unspecified drugs, medicaments and biological substances, intentional self-harm, initial encounter (principal); R40.0 Somnolence; F32.9 Major depressive disorder, single episode, unspecified; F17.200 Nicotine dependence, unspecified, uncomplicated; F11.10 Opioid abuse, uncomplicated; M54.9 Dorsalgia, unspecified; M79.603 Pain in arm, unspecified; M79.606 Pain in leg, unspecified; R00.0 Tachycardia, unspecified; J45.909 Unspecified asthma, uncomplicated; Z88.5 Allergy status to narcotic agent; Z88.8 Allergy status to other drugs, medicaments and biological substances
CPT/HCPCS: 93005; 99285; 96360; 96361; 36415; 80307 ×4; 85025; 80053; 81001; 93010; J3490 ×3; J7030

== ENCOUNTER 2020-01-02 17:50 | Emergency (ER) | payer SELFPAY ==
--- NOTE | 2020-01-02 18:36 | EKG REPORT ---
SEVERITY:- NORMAL ECG - SINUS RHYTHM : Confirmed by: Ramona Dasilva MD 02-Jan-2020 18:36:03
[2020-01-02 18:48] LABS: ABSOLUTE EOSINOPHILS # (AUTO) 0.3 10^3/uL (0.0-0.6); ABSOLUTE LYMPHOCYTES (AUTO) 2.7 10^3/uL (0.5-4.7); ABSOLUTE MONOCYTES (AUTO) 0.5 10^3/uL (0.1-1.4); ABSOLUTE NEUT (AUTO) 3.9 10^3/uL (1.7-8.2); BASOPHILS % (AUTO) 0.3 % (0-2); EOSINOPHILS % (AUTO) 4.5 % (0-6); HEMATOCRIT 39.3 % (37.9-51.0); HEMOGLOBIN 13.5 g/dL (13.5-17.0); LYMPHOCYTES % (AUTO) 36.3 % (13-45); MEAN CORPUSCULAR HEMOGLOBIN 30.7 pg (27.0-33.4); MEAN CORPUSCULAR HGB CONC 34.5 g/dL (32.0-36.0); MEAN CORPUSCULAR VOLUME 89 fl (80-97); MONOCYTES % (AUTO) 6.8 % (3-13); PLATELET COUNT 297 10^3/uL (150-450); RED BLOOD COUNT 4.41 10^6/uL (4.35-5.55); RED CELL DISTRIBUTION WIDTH 12.2 % (11.5-14.0); SEGMENTED NEUTROPHILS % (AUTO) 52.1 % (42-78); TOTAL CELLS COUNTED % (AUTO) 100 %; WHITE BLOOD COUNT 7.4 10^3/uL (4.0-10.5)
[2020-01-02 19:11] LABS: ALBUMIN 3.9 g/dL (3.5-5.0); ALKALINE PHOSPHATASE 66 U/L (38-126); ANION GAP 9 (5-19); ASPARTATE AMINO TRANSFERASE 46 U/L (17-59); BILIRUBIN,TOTAL 0.4 mg/dL (0.2-1.3); BLOOD UREA NITROGEN 11 mg/dL (7-20); CALCIUM 9.1 mg/dL (8.4-10.2); CARBON DIOXIDE 24 mmol/L (22-30); CHLORIDE 106 mmol/L (98-107); GLUCOSE 74 mg/dL (75-110); POTASSIUM 3.9 mmol/L (3.6-5.0); TOTAL PROTEIN 6.5 g/dL (6.3-8.2)
[2020-01-02 19:14] LABS: ACETAMINOPHEN < 10 ug/mL (10-30); ALCOHOL < 10 mg/dL (NONE DETECTED); SALICYLATE < 1.0 mg/dL (2.0-20.0)
[2020-01-02] MEDS ORDERED: NORMAL SALINE 1000 ML 1,000 ML IV ONE (22:50)
--- NOTE | 2020-01-02 23:39 | ER Document Report ---
ED Psych Disorder / Suicide - General Chief Complaint: Overdose Stated Complaint: POSSIBLE OVERDOSE Time Seen by Provider: 01/02/20 18:42 Primary Care Provider: GAMAL POWELL MD [Primary Care Provider] - Follow up as needed Cannot obtain history due to: Altered mental status Notes: Patient is a 19-year-old male who apparently has been trying to stop using drugs. Apparently was suicidal today has had recent break-up with his significant other. Patient apparently took 20 gabapentin, 10 diclofenac, 10 Zofran. EMS gave patient charcoal prior to arrival. This happened around 4 PM. Poison control was contacted prior to arrival. Patient with no other injurious behavior prior to arrival. Difficult to obtain history from the patient as he is very drowsy. TRAVEL OUTSIDE OF THE [place] IN LAST 30 DAYS: No - HPI Patient complains to provider of: Overdose, Suicidal ideation Onset: This afternoon Quality of pain: No pain Severity: None Situational problems related to: Significant other Suicide Attempt Method: Overdose - Related Data Allergies/Adverse Reactions: tramadol [From [facility]] Allergy (Verified 12/15/18 23:16) Past Medical History - General Cannot obtain history due to: Altered mental status - Social History Smoking Status: Current Every Day Smoker Drug Abuse: Heroin, Methamphetamine Family History: Reviewed & Not Pertinent Patient has suicidal ideation: No Patient has homicidal ideation: No Pulmonary Medical History: Reports: Hx Asthma Renal/ Medical History: Denies: Hx Peritoneal Dialysis - Immunizations Immunizations up to date: Yes Hx Diphtheria, Pertussis, Tetanus Vaccination: Yes Review of Systems - Review of Systems -: Yes ROS unobtainable due to patient's medical condition Physical Exam - Vital signs Vitals: Resp 13 01/02/20 17:54 Interpretation: Normal - General General appearance: Lethargic - HEENT Head: Normocephalic, Atraumatic Sinus: Normal Nasal: Normal Mucous membranes: Dry - charcoal in mouth - Respiratory Respiratory status: No respiratory distress Chest status: Nontender Breath sounds: Normal Chest palpation: Normal - Cardiovascular Rhythm: Regular - Abdominal Inspection: Normal Distension: No distension Tenderness: Nontender - Extremities General upper extremity: Normal inspection, Normal ROM, Normal strength General lower extremity: Normal inspection, Normal ROM, Normal strength - Neurological Cognition: Confused Dayanara Coma Scale Eye Opening: To Pain Crandon Coma Scale Verbal: Confused [place] Coma Scale Motor: Localizes to Pain [place] Coma Scale Total: 11 - Psychological Associated symptoms: Confused Course - Re-evaluation Re-evalutation: 01/02/20 19:37 Patient is a 19-year-old male who took gabapentin, diclofenac, and Zofran prior to arrival. Poison control was contacted. Recommend observe the patient for 6 hours. Overdose was at 4 PM this evening. EKG with no acute findings. Normal QTC and QRS. Blood work benign. Urine still pending. 01/02/20 23:38 Patient more easily arousable. Denies any pain. Medically stable. Urine still pending. Awaiting mental health evaluation. Patient has been placed on involuntary commitment paperwork. - Vital Signs Vital signs: Temp Pulse Resp BP Pulse Ox 12 106/59 L 100 01/02/20 21:01 01/02/20 21:01 01/02/20 21:01 - Laboratory Result Diagrams: 01/02/20 18:03 01/02/20 18:03 Laboratory results interpreted by me: 01/02/20 18:03 Glucose 74 L Salicylates < 1.0 L Acetaminophen < 10 L - EKG Interpretation by [facility] EKG shows normal: Sinus rhythm Rate: Normal P Waves: Other - QTC 421. Normal QRS and VA. Critical Care Note - Critical Care Note Total time excluding time spent on procedures (mins): 35 - Evaluation and management of overdose with multiple re-evaluations, coordination with poison control, multiple re-evaluations Discharge - Discharge Clinical Impression: Suicidal ideation, Intentional overdose of drug in tablet form Condition: Stable Disposition: PSYCH HOSP/UNIT
[2020-01-03 04:09] LABS: APPEARANCE,URINE CLEAR; BILIRUBIN,URINE NEGATIVE (NEGATIVE); COLOR,URINE YELLOW; GLUCOSE, URINE NEGATIVE (NEGATIVE); KETONES,URINE NEGATIVE (NEGATIVE); LEUKOCYTE ESTERASE,URINE NEGATIVE (NEGATIVE); NITRITE,URINE NEGATIVE (NEGATIVE); PROTEIN,URINE NEGATIVE (NEGATIVE); URINE SPECIFIC GRAVITY 1.017
[2020-01-03 04:28] LABS: URINE BARBITURATES SCREEN NEGATIVE; URINE BENZODIAZEPINES SCREEN NEGATIVE; URINE COCAINE SCREEN NEGATIVE; URINE METHADONE SCREEN NEGATIVE; URINE PHENCYCLIDINE SCREEN NEGATIVE
[2020-01-03 04:40] LABS: URINE MARIJUANA (THC) SCREEN UNCONFIRMED POSITIVE
--- NOTE | 2020-01-03 15:29 | PSYCHOLOGICAL NOTE ---
Psych Note - Psych Note Date seen by psych provider: 01/03/20 Time seen by psych provider: 07:30 Psych Note: Patient is a 19-year-old male who presents to ED via EMS for suicidal ideation via overdose on unknown dosages of 20 Gabapentin, 10 Diclofencine, and 8-10 Zofran. Patient has a history with behavioral health team with similar etiology. Patient confirms overdose was a suicide attempt. Patient states he did it "to get my parent's attention." Patient identified little social support. Patient states his family has little contact with him due to his drug use (herioin and meth) and criminal justice involvement (drugs, simple assault). Patient continues to endorse suicidal ideation and spoke of "not having anything" since he burned his certificate and social security card. Patient states it was done out of anger at his parents. Clinician discussed placement at [facility]. Patient then expressed a desire to leave. Clinician reminded patient he is on a 24-hour petition for evaluation. Patient became demanding and irritable. Patient stated he did not need to go inpatient that he is has plans to go to [place] with his uncle. Clinician notes patient's emotional lability as evidenced by periods of cooperativeness, and then anger, and then tearfulness. Patient became agitated that his parents may not have time to come visit him before he leaves for [facility]. Patient was overheard by nurse being rude and blaming mom for his current circumstance. Patient is alert and oriented to person, place, time and circumstance. Mood is labile with congruent affect. Patient endorses suicidal ideation with no specific plan however verbalized overdose is an option. Patient denies homicidal ideations. Delusions are absent and behavior is congruent with an intact reality based presentation (i.e., organized and linear through processes). There is no observed behavior that suggests patient is responding to internal stimuli. Patient is able to engage in organized, rational thought processes. Patient is able to express needs and wants in a logical manner. Patient denies current auditory and visual hallucinations. Eye contact is appropriate. Conversational speech is within normal rate, tone, and prosody. Intellectual ability appears to be within average range. Attention and concentration are good. Insight, judgment and impulse control are currently poor. Impression/Plan: Patient is recommended for full IVC petition. Patient continues to endorse suicidal ideation with no specific plan other than overdose, to which patient has a history of overdose. Patient current presentation and recent history is suggestive of him being a danger to himself as evidenced by his lack insight and judgment into his current situation and emotional lability that hinders appropriate problem solving ability. Plan is for patient to transferred to [facility] for substance abuse and mental health treatment. Dr. Rivas was consulted on the care and management of this patient; attending physician is in agreement with recommendations and disposition.
[2020-01-03 17:37] VITALS: BP 104/53
--- NOTE | 2020-01-03 17:41 | ER Document Report ---
Doctor's Note Notes: 01/03/20 17:38 Progress note: Patient is 19-year-old white male who presented for overdose attempt/suicide attempt in relation to try to get his parents attention. He has been evaluated by mental health. He is going to be transferred to [place] for substance abuse and psychiatric treatment. My reevaluation of him today, he is stable. He has no hallucinations or delusions. He denies any suicidal or homicidal ideations. His vitals are stable for his baseline vitals since he has been here. He does admit to some body aches from "withdraws". He denies any other medical complaints. Heart: Regular rate and rhythm, lungs clear to auscultation bilaterally. Somewhat of a flat affect. He is agreeable to plan for transfer for further higher level of care. He is appropriate for transfer. Discussed with attending who agrees with plan.
== END 2020-01-03 17:55 ==
LOC: ER 17:50
DX: T42.6X2A Poisoning by other antiepileptic and sedative-hypnotic drugs, intentional self-harm, initial encounter (principal); F11.10 Opioid abuse, uncomplicated; F19.10 Other psychoactive substance abuse, uncomplicated; Y92.9 Unspecified place or not applicable; F17.200 Nicotine dependence, unspecified, uncomplicated; J45.909 Unspecified asthma, uncomplicated
CPT/HCPCS: 93005; 99285; 96360; 36415; 80307 ×4; 85025; 80053; 81001; 93010; J7030